=== PATIENT | male | born 1995 | race Caucasian/White ===

== ENCOUNTER 2017-04-20 17:45 | Emergency (ER) | payer OTHER ==
[~2017-04-20] VITALS: Wt 61.2 kg
[2017-04-20] MEDS ORDERED: PHENERGAN25 M3 PO (18:13)
== END 2017-04-20 18:15 | disposition home or self-care (01) ==
LOC: ED 17:45
DX: K52.9 Noninfective gastroenteritis and colitis, unspecified (principal)

== ENCOUNTER → 2021-10-19 | Outpatient (CLI) | payer OTHER ==
[~2021-10-19] MED LIST: PHENERGAN25 M3 PO
== END | disposition home or self-care (01) ==
LOC: COVID19 17:00
PROVIDERS: ATTEND Internal Medicine
DX: U07.1 COVID-19 (principal)

== ENCOUNTER 2023-10-10 11:29 | Emergency (ER) | payer BC ==
[~2023-10-10] VITALS: Wt 68.0 kg
[2023-10-10 13:21] LABS: HEMATOCRIT 51.3 % (42.0-52.0); MEAN CELL VOLUME 88.3 fl (80.0-94.0); MEAN CORPUSCULAR HGB 29.8 pg (27.0-31.0); MEAN CORPUSCULAR HGB CONC 33.7 g/dl (33.0-37.0); MEAN PLATELET VOLUME 10.1 fl (9.6-12.3); PLATELET COUNT AUTOMATED 275 10*3/uL (130-400); RED BLOOD COUNT 5.81 10*6/uL (4.50-5.90); RED CELL DISTRI WIDTH 11.9 % (0-14.5); WHITE BLOOD COUNT 16.1 10*3/uL (4.8-10.8)
[2023-10-10 13:29] LABS: MANUAL DIFF REFLEX YES
[2023-10-10 13:40] LABS: TOTAL CELLS COUNTED 100 #CELLS
[2023-10-10 13:41] LABS: PLATELET SUFFICIENCY NORMAL (NORMAL)
[2023-10-10 13:44] LABS: ALKALINE PHOSPHATASE 61 U/L (46-116); BUN 27 mg/dl (9-23); CHLORIDE 104 mmol/L (98-107); LIPASE 30 U/L (12-53); POTASSIUM 4.5 mmol/L (3.4-5.1); SGPT/ALT 54 U/L (5-49); TOTAL PROTEIN 9.6 gm/dL (6.0-8.0)
[2023-10-10] MEDS ORDERED: PHENERGAN25 M3 PO (15:12)
== END 2023-10-10 15:27 | disposition home or self-care (01) ==
LOC: ED 11:29
PROVIDERS: Nurse Practitioner
DX: K52.9 Noninfective gastroenteritis and colitis, unspecified (principal); R11.2 Nausea with vomiting, unspecified